=== PATIENT | male | born 1990 | race African-American/Black ===

== ENCOUNTER 2019-07-10 19:57 | Emergency (ER) | payer OTHER, BC ==
[2019-07-10] MEDS ORDERED: DIPH/PERTUSS(ACELL)/TETANUS VAC/PF 0.5 ML SYR (>=10YO) IM ONE (20:19)
--- NOTE | 2019-07-10 20:21 | ER Document Report ---
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 Is unsure when his last tetanus was. No active bleeding C-shaped laceration noted approximately 1/2 to 2 cm. I have greeted and performed a rapid initial assessment of this patient. A comprehensive ED assessment and evaluation of the patient, analysis of test results and completion of the medical decision making process will be conducted by additional ED providers. Dictation of this chart was performed using voice recognition software; therefore, there may be some unintended grammatical errors. TRAVEL OUTSIDE OF THE [place] IN LAST 30 DAYS: No - Related Data Allergies/Adverse Reactions: No Known Allergies Allergy (Verified 07/10/19 20:00) Past Medical History - Immunizations Hx Diphtheria, Pertussis, Tetanus Vaccination: Yes Physical Exam - Vital signs Vitals: Temp Pulse Resp BP Pulse Ox 98.6 F 69 18 130/72 H 98 07/10/19 20:07 07/10/19 20:07 07/10/19 20:07 07/10/19 20:07 07/10/19 20:07 Course - Vital Signs Vital signs: Temp Pulse Resp BP Pulse Ox 98.6 F 69 18 130/72 H 98 07/10/19 20:07 07/10/19 20:07 07/10/19 20:07 07/10/19 20:07 07/10/19 20:07 Doctor's Discharge - Discharge Referrals: JUAREZ WILLIS [Primary Care Provider] - Follow up as needed
--- NOTE | 2019-07-10 20:47 | ER Document Report ---
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 no intentional self harm. no excessive bleeding, or acute blood loss sx. he is right handed. No numbness, weakness or tingling. Pain worse with movement, better with rest. No pain anywhere else. last TDAP > 5yrs ago. no intoxication. no pain anywhere else. no blood thinners, or hx of bleeding or clotting disorders. hasn't put anything on it or sought care until now. no head injury. pt able to walk. acting baseline. no preceding injury sx. no surgeries on this hand. no hx of diabetes or asthma. no recent abx or stero ids. no syncope. no cp or sob or fevers. no drainage or intractable bleeding. No other complaints at this time. TRAVEL OUTSIDE OF THE [place] IN LAST 30 DAYS: No - HPI Severity: Mild Pain Level: 1 Capillary refill: < 3 seconds Sensations intact: Yes Distal pulses present: Yes - Related Data Allergies/Adverse Reactions: No Known Allergies Allergy (Verified 07/10/19 20:00) Past Medical History - General Information source: Patient - Social History Smoking Status: Never Smoker Frequency of alcohol use: None Drug Abuse: None Family History: Reviewed & Not Pertinent Patient has suicidal ideation: No Patient has homicidal ideation: No - Medical History Medical History: Negative - Immunizations Immunizations up to date: Yes Hx Diphtheria, Pertussis, Tetanus Vaccination: Yes Review of Systems - Review of Systems -: Yes All other systems reviewed and negative - to include 10 systems, unless mentioned in the hpi Physical Exam - Vital signs Vitals: Temp Pulse Resp BP Pulse Ox 98.6 F 69 18 130/72 H 98 07/10/19 20:07 07/10/19 20:07 07/10/19 20:07 07/10/19 20:07 07/10/19 20:07 Temp Pulse Resp BP Pulse Ox 07/10/19 22:15 97.6 F 91 20 118/80 100 09/17/19 20:07 98.6 F 69 18 130/72 H 98 Interpretation: Normal Notes: GENERAL_APPEARANCE: well_nourished, alert, cooperative, no obvious discomfort. pleasant, thin young black male, smiling, speaking in full sentences, easily sitting up, in no sign of pain or resp distress, no one is with him VITALS: WNL. HEAD: no_swelling\tenderness on the head, no_abrasions\lacerations on the head. normocephalic, atraumatic. no jones signs. no raccoon eyes NECK: no ttp. full rom. full strength HEART: RRR LUNGS: CTAB, good air exchange diffusely. no chest wall ttp EXTREMITIES: full rom. full strength. normal gait. good pulse in all extremities, approx 1 cm curvilinear superficial laceration in the webspace of right thumb and index finger. no active bleeding. no drainage, streaking, induration, fluctuation, or bleeding, exploration of wound showed no FB. Brisk cap refill. 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 brisk cap refill. normal gait. pt able to give a thumbs up, touch thumb to all other fingers, and give an ok sign. no sign of tendon or nerve involvement. neg kanavel sign. neg snuff box ttp. no subungual hematoma. SKIN: warm, dry, good_color. no rash or sign of cellulitis. NEURO: motor_intact and sensory_intact in injured_extremity. cranial nerves 2-12 intact, cerebellar fxn intact MENTAL_STATUS: speech_clear, oriented_X_3, responds_appropriately to questions. Course - Re-evaluation Re-evalutation: 07/10/19 21:40 pt here for a small laceration in the webspace of his right 1st and 2nd fingers. right hand xr neg per rad and reviewed by myself. his tdap was updated. he elected to have wound closure via dermabond and steri-strip/benzoin secondary to a needle phobia. advised he may have wound dehiscence and infection given location of injury by performing would closure however wound edges were approximated and is well appearing. advised to f/u with pcp in 2 days for recheck of wound. will dc with keflex. return for any worsening symptoms. vss. well appearing. satting well on ra. neurononfocal. pt understands and agrees to plan. On reexam, pt improved with tx listed. remained stable. nontoxic. well appearing. pain controlled. tolerating po. requesting to go home. neurononfocal. case discussed with ER Attending, Dr. osborne, who directed and agrees with plan of care and advised no further workup indicated at this time and pt is stable for dc home with close f/u with pcp/specialist. Documentation achieved through voice recording which may lead to some occasional accidental typographical errors. Extensive efforts have been made to proof read documentation to make sure these are the least as possible. Category Date Time Status Dermabond (ED) NOW Care 07/10/19 21:36 Ordered Steri-strips (ED) NOW Care 07/10/19 21:36 Ordered Wound care [Dressing/Wound Care (ED)] NOW Care 07/10/19 21:36 Ordered HAND RIGHT 3 VIEWS [RAD] Stat Exams 07/10/19 20:46 Completed Diph,Pertuss(Acell),Tet Vac/Pf [Boostrix Vaccine 0.5 ml Med 07/10/19 20:19 Discontinued Syringe] 0.5 ml IM NOW ONE 07/11/19 12:08 07/11/19 12:15 - Vital Signs Vital signs: Temp Pulse Resp BP Pulse Ox 97.6 F 91 20 118/80 100 07/10/19 22:15 07/10/19 22:15 07/10/19 22:15 07/10/19 22:15 07/10/19 22:15 07/11/19 12:14 Temp Pulse Resp BP Pulse Ox 07/10/19 22:15 97.6 F 91 20 118/80 100 07/10/19 20:07 98.6 F 69 18 130/72 H 98 - Diagnostic Test Radiology reviewed: Image reviewed, Reports reviewed Radiology results interpreted by me: 07/10/19 21:40 Hand X-Ray 07/10/19 20:46 IMPRESSION: No fracture. Procedures - Laceration/Wound Repair Right Finger Thumb Time completed: 21:41 Wound length (cm): 1 Wound's Depth, Shape: Superficial, Linear Laceration pre-procedure: Betadine prep applied, Chloraprep applied Volume Anesthetic (mLs): 0 Wound explored: Clean Irrigated w/ Saline (mLs): 50 Wound Repaired With: Steri-strips - with benzoin. 3 steristrips used, Dermabond Layer Closure?: No Post-procedure wound care: Sterile dressing applied Post-procedure NV exam normal: Yes Complications: No Notes: 07/10/19 21:42 LACERERATION REPAIR PROCEDURE: Pt consented to procedure. Procedure without incident. Pt tolerated procedure well. Standard usual sterile technique applied. Laceration Repair - All wound(s) were prepped with betadine, and cleaned with copious NS irrigation. Exploration of wound(s) showed no FB. Laceration 1 was closed with steri-strip, bezpoin, and a nonstick dressing. Wound dressed by me with neosporin, nonstick, gauze, and tape. hemostasis achieved with minimal blood loss. wound edges well approximated. motor and sensation intact pre and post laceration repair along with good pulses pre and post repair and good cap refill checked by myself. 07/11/19 12:22 Discharge - Discharge Clinical Impression: Need for Tdap vaccination Laceration of finger of right hand Qualifiers: Encounter type: initial encounter Finger: thumb Damage to nail status: without damage Foreign body presence: without foreign body Qualified Code(s): S61.011A - Laceration without foreign body of right thumb without damage to nail, initial encounter Condition: Good Disposition: HOME, SELF-CARE Instructions: Laceration Care (OM), Prophylactic Antibiotic (OM), Tetanus Immunization Given ([facility]) Additional Instructions: Follow-up with PCP in 1 to 2 days. Return for any worsening symptoms. tylenol or motrin as needed for any pain or fever if not allergic. take the medication as prescribed. monitor for signs of infection as discussed. keep the area clean and dry. no right handed work or heavy lifting or repetitive movements until area heals. let the dermabond and steri-strips fall off on their own. Prescriptions: Cephalexin Monohydrate [Keflex 500 mg Capsule] 500 mg PO TID #21 capsule Forms: Return to Work Referrals: LOCAL,NO [NO LOCAL MD] - Follow up as needed
--- NOTE | 2019-07-10 21:29 | RADIOLOGY REPORT (SQ) ---
XR HAND 3 OR MORE VIEWS CLINICAL STATEMENT: laceration 1st webspace COMPARISON: None FINDINGS: Bony alignment is anatomic. There is no fracture or dislocation. The soft tissues are unremarkable. No radiopaque foreign body. IMPRESSION: No fracture.
[2019-07-10 22:17] VITALS: BP 118/80
== END 2019-07-10 22:20 | disposition home or self-care (01) ==
LOC: ER 19:57
DX: S61.011A Laceration without foreign body of right thumb without damage to nail, initial encounter (principal); W45.8XXA Other foreign body or object entering through skin, initial encounter; Y93.89 Activity, other specified; Y99.0 Civilian activity done for income or pay; Z23 Encounter for immunization
CPT/HCPCS: 90715